=== PATIENT | female | born 1975 | race Caucasian/White ===

== ENCOUNTER 2017-07-12 17:20 | Emergency (ER) | payer SELFPAY ==
[~2017-07-12] VITALS: Ht 172.7 cm; Wt 100.7 kg
[2017-07-12 19:43] VITALS: BP 140/86
== END 2017-07-12 19:43 | disposition home or self-care (01) ==
LOC: ED 17:20
DX: J02.9 Acute pharyngitis, unspecified (principal); R03.0 Elevated blood-pressure reading, without diagnosis of hypertension
CPT/HCPCS: J1100; J1885

== ENCOUNTER 2017-09-24 13:13 | Emergency (ER) | payer MEDICAID ==
[2017-09-24 14:58] LABS: BASOPHIL % 1.3 % (0-2); PLATELET COUNT 376 x10^3mcL (130-400); RED CELL DISTRIBUTION WIDTH 13.8 % (11.5-14.5)
[2017-09-24 15:00] LABS: CALCIUM 8.3 mg/dL (8.5-10.1); CARBON DIOXIDE 26.8 mmol/L (21-32); CHLORIDE SERUM 104 mmol/L (98-107); CREATININE SERUM 0.7 mg/dL (0.6-1.0); GFR1 > 60 mL/min; GLUCOSE SERUM 116 mg/dL (74-106); SODIUM SERUM 138 mmol/L (136-145)
[2017-09-24 15:05] LABS: ALBUMIN 3.5 g/dL (3.4-5.0); ALKALINE PHOSPHATASE 99 U/L (46-116); ALT/SGPT 21 U/L (14-59); AST/SGOT 18 U/L (15-37); BILIRUBIN TOTAL 0.22 mg/dL (0.20-1.00); TOTAL PROTEIN, SERUM 7.5 g/dL (6.4-8.2)
[2017-09-24 16:08] VITALS: BP 134/90
== END 2017-09-24 16:08 | disposition home or self-care (01) ==
LOC: ED 13:13
PROVIDERS: Emergency Medicine
DX: Z91.19 Patient's noncompliance with other medical treatment and regimen (principal); I10 Essential (primary) hypertension

== ENCOUNTER 2019-05-11 23:45 | Emergency (ER) | payer MEDICAID ==
[~2019-05-11] VITALS: Ht 157.5 cm; Wt 103.6 kg
[2019-05-11 23:49] VITALS: BP 155/72; Ht 157.5 cm; Wt 103.6 kg
== END 2019-05-12 00:22 | disposition home or self-care (01) ==
LOC: ED 23:45
DX: R21 Rash and other nonspecific skin eruption (principal); T78.40XA Allergy, unspecified, initial encounter; X58.XXXA Exposure to other specified factors, initial encounter
CPT/HCPCS: J7512; Q0163

== ENCOUNTER 2019-06-24 22:21 | Emergency (ER) | payer MEDICAID ==
[~2019-06-24] VITALS: Ht 160 cm; Wt 102.3 kg
[2019-06-24 22:25] VITALS: Ht 160 cm; Wt 102.3 kg
[2019-06-25 00:25] VITALS: BP 127/76
== END 2019-06-25 00:25 | disposition home or self-care (01) ==
LOC: ED 22:21
DX: B35.1 Tinea unguium (principal); J30.2 Other seasonal allergic rhinitis; I10 Essential (primary) hypertension; S91.201A Unspecified open wound of right great toe with damage to nail, initial encounter; X58.XXXA Exposure to other specified factors, initial encounter; Y93.89 Activity, other specified; Y92.89 Other specified places as the place of occurrence of the external cause; Y99.8 Other external cause status